=== PATIENT | female | born 1985 | race African-American/Black ===

== ENCOUNTER 2020-01-05 18:38 | Emergency (ER) | payer MEDICAID, OTHER ==
[~2020-01-05] VITALS: Ht 162.6 cm; Wt 73.0 kg
[2020-01-05] MEDS ORDERED: KETOROLAC 60MG/2ML VIAL IM STA (19:10)
[2020-01-05] MEDS ORDERED: LORAZEPAM 2MG/ML CPJ IM ONE (19:15)
[2020-01-05] MEDS ORDERED: LIDOCAINE HCL/PF 1% 10 MG/ML 5ML VIAL IJ ONE (19:15)
[2020-01-05 20:40] VITALS: BP 138/82
== END 2020-01-05 20:50 | disposition home or self-care (01) ==
LOC: ER 18:38
DX: S00.551A Superficial foreign body of lip, initial encounter (principal); M79.642 Pain in left hand; M79.641 Pain in right hand; Y04.0XXA Assault by unarmed brawl or fight, initial encounter; Y93.89 Activity, other specified; Y92.89 Other specified places as the place of occurrence of the external cause; Y99.8 Other external cause status
CPT/HCPCS: 40804; 73130; 81025; 96372; 99284; J1885; J2060; J3490

== ENCOUNTER 2020-02-24 02:13 | Emergency (ER) | payer OTHER ==
[~2020-02-24] VITALS: Ht 162.6 cm; Wt 73.0 kg
[2020-02-24 02:25] VITALS: BP 153/106
[2020-02-24] MEDS ORDERED: IPRATROPIUM/ALBUTEROL 0.5-3(2.5)MG/3ML NEB HHN ONE (02:45)
== END 2020-02-24 03:28 | disposition home or self-care (01) ==
LOC: ER 02:22
DX: J44.9 Chronic obstructive pulmonary disease, unspecified (principal); R03.0 Elevated blood-pressure reading, without diagnosis of hypertension; F17.210 Nicotine dependence, cigarettes, uncomplicated
CPT/HCPCS: 71045; 93005; 94640; 99283; Z7610

== ENCOUNTER 2020-08-16 16:38 | Emergency (ER) | payer MEDICAID, OTHER ==
[~2020-08-16] VITALS: Ht 165.1 cm; Wt 68.0 kg
[2020-08-16 17:02] VITALS: BP 127/70
[2020-08-16] MEDS ORDERED: KETOROLAC 60MG/2ML VIAL IM ONE (18:00)
[2020-08-16] MEDS ORDERED: ACETAMINOPHEN 325MG TABLET PO ONE (18:45)
== END 2020-08-16 18:57 | disposition home or self-care (01) ==
LOC: ER 16:38
DX: S00.511A Abrasion of lip, initial encounter (principal); Z98.890 Other specified postprocedural states; Y04.0XXA Assault by unarmed brawl or fight, initial encounter; Y93.89 Activity, other specified; Y92.89 Other specified places as the place of occurrence of the external cause; Y99.8 Other external cause status
CPT/HCPCS: 81025; 96372; 99283; J1885

== ENCOUNTER 2021-04-10 15:41 | Emergency (ER) | payer OTHER ==
[~2021-04-10] VITALS: Ht 157.5 cm; Wt 77.0 kg
[~2021-04-10 15:41] MED LIST: METR500T MT; SULF1TAB48 MT
[2021-04-10 16:12] VITALS: BP 158/94
[2021-04-10] MEDS ORDERED: AZIT250T12 MT (18:42)
[2021-04-10] MEDS ORDERED: ALBU6.7H15 INH (18:43)
[2021-04-10] MEDS ORDERED: MED4 MT (18:44)
== END 2021-04-10 18:50 | disposition home or self-care (01) ==
LOC: ER 15:45
DX: R05.9 Cough, unspecified (principal); R06.02 Shortness of breath; R06.2 Wheezing; Z79.899 Other long term (current) drug therapy
CPT/HCPCS: 99283; 99406